=== PATIENT | male | born 1935 | race Caucasian/White ===

== ENCOUNTER 2021-07-08 08:52 | Day surgery (SDC) | payer MEDICARE, MEDICAID ==
[~2021-07-08] VITALS: Ht 175.3 cm; Wt 68.2 kg
[~2021-07-08 08:52] MED LIST: SODIUM CHLORIDE 0.9% 1,000 ML IV ONE; SODIUM CHLORIDE 0.9% 1,000 ML ONE
[2021-07-08 09:19] LABS: COVID AG,FIA SOURCE NASAL SWAB
[2021-07-08 10:21] LABS: CALCIUM, TOTAL 9.1 mg/dL (8.8-10.5); CREATININE 1.26 mg/dL (0.60-1.30); POTASSIUM 4.8 mmol/L (3.5-5.1)
[2021-07-08] MEDS ORDERED: ASPI-989 PO (10:23)
[2021-07-08] MEDS ORDERED: OMEP20 PO (10:24)
[2021-07-08] MEDS ORDERED: ATOR20TA86 PO (10:24)
[2021-07-08 10:25] LABS: INR 1.1 (0.9-1.1); PROTHROMBIN TIME 11.7 SEC (9.4-11.6)
[2021-07-08] MEDS ORDERED: CARV6 PO (10:25)
[2021-07-08] MEDS ORDERED: LOSA-382 PO (10:26)
[2021-07-08] MEDS ORDERED: TAMS-13 PO (10:27)
[2021-07-08] MEDS ORDERED: CLOP75TA60 PO (10:28)
[2021-07-08 10:29] LABS: ALBUMIN 3.6 g/dL (3.4-5.0); BILIRUBIN,TOTAL 1.5 mg/dL (0.1-1.0); TOTAL PROTEIN, SERUM 7.1 g/dL (6.4-8.2)
[2021-07-08] MEDS ORDERED: HEPARIN SODIUM 1000 UNITS/NS 1,000 ML ONE (10:41)
[2021-07-08] MEDS ORDERED: LIDOCAINE/PF 1% 30 ML VIAL ONE (10:41)
[2021-07-08] MEDS ORDERED: IOHEXOL 300 MG/ML 150 ML VIAL ONE (10:41)
[2021-07-08] MEDS ORDERED: IOHEXOL 300 MG/ML 50 ML VIAL ONE (10:41)
[2021-07-08] MEDS ORDERED: SODIUM BICARBONATE 50 MEQ/50 ML VIAL ONE (10:41)
[2021-07-08] MEDS ORDERED: IOHEXOL 300 MG/ML 100 ML VIAL ONE (10:41)
[2021-07-08] MEDS ORDERED: SODIUM CHLORIDE 0.9% 1,000 ML ONE (10:54)
[2021-07-08 10:59] VITALS: BP 118/72
[2021-07-08] MEDS ORDERED: FentaNYL CITRATE PF 100 MCG/2 ML VIAL ONE (11:03)
[2021-07-08] MEDS ORDERED: MIDAZOLAM HCL 2 MG/2 ML VIAL ONE (11:03)
[2021-07-08] MEDS ORDERED: IOHEXOL 300 MG/ML 100 ML VIAL ICOR ONE (11:15)
[2021-07-08] MEDS ORDERED: HEPARIN SODIUM 1000 UNITS/NS 1,000 ML IARTER ONE (11:15)
[2021-07-08] MEDS ORDERED: IOHEXOL 300 MG/ML 150 ML VIAL ICOR ONE (11:15)
[2021-07-08] MEDS ORDERED: IOHEXOL 300 MG/ML 50 ML VIAL ICOR ONE (11:15)
[2021-07-08] MEDS ORDERED: LIDOCAINE 1% 30 ML/SOD BICARB 8.4% 4 ML SQ ONE (11:15)
[2021-07-08] MEDS ORDERED: SODIUM BICARBONATE 50 MEQ/50 ML VIAL SQ ONE (11:30)
[2021-07-08] MEDS ORDERED: LIDOCAINE/PF 1% 30 ML VIAL SQ ONE (11:30)
[2021-07-08] MEDS ORDERED: MIDAZOLAM HCL 2 MG/2 ML VIAL IVP ONE ×2 (12:00→12:15)
[2021-07-08 12:34] VITALS: BP 136/72
[2021-07-08] MEDS ORDERED: ISOS30TA68 PO (12:38)
[2021-07-08] MEDS ORDERED: ISOS30TA92 PO (12:39)
[2021-07-08] MEDS ORDERED: SODIUM CHLORIDE 0.9% 500 ML IV ONE (12:45)
[2021-07-08] MEDS ORDERED: ACETAMINOPHEN 325 MG TABLET PO PRN (12:45)
[2021-07-08] MEDS ORDERED: NITROGLYCERIN/D5W 50 MG/250 ML IV BOTTLE ICOR ONE (12:45)
== END 2021-07-08 17:35 | disposition home or self-care (01) ==
LOC: CATHLAB 08:52
PROVIDERS: ATTEND Internal Medicine Cardiovascular Disease
DX: I25.10 Atherosclerotic heart disease of native coronary artery without angina pectoris (principal); I25.5 Ischemic cardiomyopathy; I11.0 Hypertensive heart disease with heart failure; I35.0 Nonrheumatic aortic (valve) stenosis; I50.22 Chronic systolic (congestive) heart failure; I48.92 Unspecified atrial flutter; Z95.1 Presence of aortocoronary bypass graft; Z79.01 Long term (current) use of anticoagulants; I25.2 Old myocardial infarction; Z88.6 Allergy status to analgesic agent; Z88.8 Allergy status to other drugs, medicaments and biological substances; Z98.890 Other specified postprocedural states; Z87.01 Personal history of pneumonia (recurrent); Z79.899 Other long term (current) drug therapy; Z86.73 Personal history of transient ischemic attack (TIA), and cerebral infarction without residual deficits; Z79.82 Long term (current) use of aspirin
CPT/HCPCS: 36415; 80053; 85610; 85730; 87426; 93005; 93459; 99152; 99153; C1760; C9803; J1644; J2250; J3490 ×2; J7030; Q9967 ×3; J3010